=== PATIENT | male | born 1965 | race African-American/Black ===

== ENCOUNTER 2018-03-27 01:50 | Emergency (ER) | payer MEDICAID ==
[~2018-03-27] VITALS: Ht 188 cm; Wt 100.0 kg
[2018-03-27] MEDS ORDERED: SODIUM CHLORIDE 0.9% 1,000 ML IV ONE (02:21)
[2018-03-27 03:50] LABS: BASOPHILS % 0.8 % (0.0-2.0); EOSINOPHILS % 2.4 % (0.0-5.0); HEMATOCRIT. 46.1 % (42.0-52.0); HEMOGLOBIN. 15.8 g/dL (14.0-18.0); LYMPHOCYTES % 33.8 % (20.0-50.0); MEAN CORPUSCULAR HEMOGLOBIN 31.5 pg (28.0-32.0); MEAN CORPUSCULAR VOLUME 92.2 fL (80.0-94.0); MEAN PLATELET VOLUME 7.7 fl (7.4-10.4); PLATELET 248 x1000/uL (130-400); RED CELL DISTRIBUTION WIDTH 15.7 % (11.6-14.6)
[2018-03-27 03:55] LABS: CHLORIDE 102 mEq/L (98-107)
[2018-03-27 04:02] LABS: D-DIMER 3.58 mg/L FEU (<0.50); PARTIAL THROMBOPLASTIN TIME 27.9 sec (23.4-31.0); PROTHROMBIN TIME 9.8 sec (9.1-11.1)
[2018-03-27 04:17] LABS: CLARITY URINE CLEAR (CLEAR); COLOR URINE YELLOW (YELLOW); KETONES URINE NEGATIVE (NEGATIVE); LEUKOCYTE ESTERASE URINE NEGATIVE (NEGATIVE); NITRITE URINE NEGATIVE (NEGATIVE); OCCULT BLOOD URINE 1+ (NEGATIVE); PROTEIN URINE NEGATIVE (NEGATIVE); SPECIFIC GRAVITY URINE 1.009 (1.005-1.030); UROBILINOGEN URINE 0.2 E.U./dL (0.2-1.0)
[2018-03-27 04:23] LABS: ETHANOL BLOOD 350 mg/dL
[2018-03-27 04:38] LABS: *AMPHETAMINES SCREEN URINE NEGATIVE (NEGATIVE); *BARBITURATES SCREEN URINE NEGATIVE (NEGATIVE); *BENZODIAZEPINES SCREEN URINE NEGATIVE (NEGATIVE); *COCAINE SCREEN URINE NEGATIVE (NEGATIVE); METHADONE URINE SCREEN NEGATIVE (NEGATIVE); OPIATES URINE SCREEN NEGATIVE (NEGATIVE)
[2018-03-27 04:39] LABS: CANNABINOID URINE SCREEN NEGATIVE (NEGATIVE); PHENCYCLIDINE URINE SCREEN NEGATIVE (NEGATIVE)
[2018-03-27] MEDS ORDERED: IOHEXOL-350 100 ML BOTTLE ONE (06:19)
[2018-03-27 11:53] VITALS: BP 139/82
== END 2018-03-27 11:58 | disposition home or self-care (01) ==
LOC: ER 01:50 → EDBD 01:50 → ER 11:58
DX: F10.229 Alcohol dependence with intoxication, unspecified (principal); Y90.8 Blood alcohol level of 240 mg/100 ml or more; R79.1 Abnormal coagulation profile; Z71.41 Alcohol abuse counseling and surveillance of alcoholic
CPT/HCPCS: 36415; 70450; 71045; 71275; 80053; 80305; 81003; 83605; 84443; 84484; 85025; 85379; 85610; 85730; 93005; 96360; 96361; 99285; G0482; J7030; Q9967; Z7610

== ENCOUNTER 2018-06-28 18:58 | Emergency (ER) | payer MEDICAID ==
[~2018-06-28] VITALS: Ht 177.8 cm; Wt 80.0 kg
[2018-06-28 21:31] VITALS: BP 123/64
[2018-06-28] MEDS ORDERED: TETANUS, DIPHTHERIA, PERTUSSIS VAC/PF 0.5ML (>7YR OLD) IM ONE (22:30)
[2018-06-28] MEDS ORDERED: CEFAZOLIN 1000MG PREMIX 50 ML IV ONE (22:30)
== END 2018-06-28 23:12 | disposition left against medical advice (07) ==
LOC: ER 19:21
DX: S00.03XA Contusion of scalp, initial encounter (principal); F10.129 Alcohol abuse with intoxication, unspecified; Y90.9 Presence of alcohol in blood, level not specified; W01.0XXA Fall on same level from slipping, tripping and stumbling without subsequent striking against object, initial encounter; Y93.89 Activity, other specified; Y92.89 Other specified places as the place of occurrence of the external cause
CPT/HCPCS: 12001; 71045; 93005; 99284

== ENCOUNTER 2021-05-23 05:12 | Inpatient (IN) | payer MEDICAID, OTHER ==
[~2021-05-23] VITALS: Ht 190.5 cm; Wt 89.9 kg
[~2021-05-23 05:12] MED LIST: AMLO5TAB4 MT; ASPI-986 MT
[2021-05-23] MEDS ORDERED: ACETAMINOPHEN 325MG TABLET PO STA (06:01)
[2021-05-23 06:32] LABS: BASOPHILS % 0.6 % (0.0-2.0); CHLORIDE 102 mEq/L (98-107); EOSINOPHILS % 1.9 % (0.0-5.0); HEMATOCRIT. 41.1 % (42.0-52.0); HEMOGLOBIN. 13.8 g/dL (14.0-18.0); LYMPHOCYTES % 36.1 % (20.0-50.0); MEAN CORPUSCULAR HEMOGLOBIN 31.3 pg (28.0-32.0); MEAN PLATELET VOLUME 7.3 fl (7.4-10.4); MONOCYTES % 8.3 % (2.0-8.0); NEUTROPHILS % 53.1 % (40.0-76.0); PLATELET 285 x1000/uL (130-400); RED BLOOD CELL COUNT 4.42 mill/uL (4.7-6.1); RED CELL DISTRIBUTION WIDTH 16.8 % (11.6-14.6)
[2021-05-23 06:36] LABS: ETHANOL BLOOD < 10 mg/dL
[2021-05-23 06:45] LABS: PROTHROMBIN TIME 10.5 sec (9.6-11.0)
[2021-05-23] MEDS ORDERED: GADOTERATE MEGLUMINE 5 MMOL/10 ML VIAL IV ONE (08:21)
[2021-05-23] MEDS ORDERED: ONDANSETRON HCL 4MG/2ML INJ IV PRN (10:15)
[2021-05-23] MEDS ORDERED: DIPHENHYDRAMINE 50MG/ML VIAL IV PRN (10:15)
[2021-05-23] MEDS ORDERED: ACETAMINOPHEN 325MG TABLET PO PRN (10:15)
[2021-05-23] MEDS ORDERED: IPRATROPIUM/ALBUTEROL 0.5-3(2.5)MG/3ML NEB HHN SCH (12:00)
[2021-05-23] MEDS: DEXAMETHASONE 4MG/ML 1ML VIAL IV SCH ×2 (13:45→18:52)
[2021-05-23] MEDS ORDERED: NALOXONE HCL 0.4MG/ML VIAL IV PRN (16:00)
[2021-05-23] MEDS: MORPHINE SULFATE 2 MG/ML CPJ (NOT FOR IM USE) IV PRN (17:38)
[2021-05-23 20:00] VITALS: BP 138/95
[2021-05-24] VITALS (39 sets, daily range): BP systolic 101–156; BP diastolic 55–98
[2021-05-24] MEDS: DEXAMETHASONE 4MG/ML 1ML VIAL IV SCH ×5 (00:04→23:57)
[2021-05-24] MEDS: MORPHINE SULFATE 2 MG/ML CPJ (NOT FOR IM USE) IV PRN ×2 (03:42→08:44)
[2021-05-24] MEDS ORDERED: *PATIENT'S OWN MEDICATION STORAGE XX SCH (04:15)
[2021-05-24] MEDS ORDERED: GENTAMICIN SULF 40MG/ML 2ML VIAL ONE (07:16)
[2021-05-24] MEDS ORDERED: BACITRACIN 15GM TUBE TOP ONE (07:16)
[2021-05-24] MEDS ORDERED: LIDOCAINE HCL/EPINEPHRINE 1%-EPI 1:100,000 20 ML VIAL ONE (07:16)
[2021-05-24] MEDS ORDERED: THROMBIN (BOVINE) 5000 UNITS/VIAL TOP ONE (07:17)
[2021-05-24 07:22] LABS: BASOPHILS % 0.2 % (0.0-2.0); HEMATOCRIT. 39.1 % (42.0-52.0); HEMOGLOBIN. 13.3 g/dL (14.0-18.0); LYMPHOCYTES % 14.4 % (20.0-50.0); MEAN CORPUSCULAR HEMOGLOBIN 31.4 pg (28.0-32.0); MEAN CORPUSCULAR VOLUME 92.8 fL (80.0-94.0); MONOCYTES % 3.3 % (2.0-8.0); NEUTROPHILS % 82.1 % (40.0-76.0); PLATELET 312 x1000/uL (130-400); RED BLOOD CELL COUNT 4.22 mill/uL (4.7-6.1); RED CELL DISTRIBUTION WIDTH 16.4 % (11.6-14.6)
[2021-05-24 08:30] LABS: CHLORIDE 101 mEq/L (98-107)
[2021-05-24 08:39] LABS: LDL CHOLESTEROL 87 mg/dL (5-100)
[2021-05-24 08:41] LABS: HDL CHOLESTEROL 62 mg/dL (40-59)
[2021-05-24] MEDS ORDERED: IPRATROPIUM/ALBUTEROL 0.5-3(2.5)MG/3ML NEB HHN PRN (10:00)
[2021-05-24] MEDS ORDERED: ROCURONIUM BROMIDE 10MG/ML VIAL 5ML IV ONE ×2 (12:23→13:00)
[2021-05-24] MEDS ORDERED: PHENYLEPHRINE HCL 10 MG/ML 1ML (IV VIAL) IV ONE (12:23)
[2021-05-24] MEDS ORDERED: MIDAZOLAM HCL 2 MG/2 ML VIAL ONE (12:23)
[2021-05-24] MEDS ORDERED: GLYCOPYRROLATE 0.2 MG/ML 2ML VIAL ONE (12:23)
[2021-05-24] MEDS ORDERED: NEOSTIGMINE METHYLSULFATE 1MG/ML 10 ML VIAL ONE (12:23)
[2021-05-24] MEDS ORDERED: FENTANYL CITRATE/PF 50MCG/ML 2ML VIAL ONE ×3 (12:23→13:47)
[2021-05-24] MEDS ORDERED: PROPOFOL 200MG/20ML VIAL IV ONE ×2 (12:23→13:46)
[2021-05-24] MEDS ORDERED: DEXAMETHASONE 4MG/ML 1ML VIAL ONE (12:24)
[2021-05-24] MEDS ORDERED: SODIUM CHLORIDE 0.9% 10ML VIAL ONE (12:24)
[2021-05-24] MEDS ORDERED: CEFAZOLIN SODIUM 1000MG/VIAL ONE (12:24)
[2021-05-24] MEDS ORDERED: SUCCINYLCHOLINE CHLORIDE 200MG/10ML IV ONE (12:24)
[2021-05-24] MEDS ORDERED: ONDANSETRON HCL 4MG/2ML INJ ONE (12:24)
[2021-05-24] MEDS ORDERED: METOCLOPRAMIDE HCL 10MG/2ML VIAL ONE (12:24)
[2021-05-24] MEDS ORDERED: MORPHINE SULFATE 4 MG/ML CPJ (NOT FOR IM USE) IV PRN (15:00)
[2021-05-24] MEDS: DEXT 5%/LACTATED RINGERS 1,000 ML IV SCH (15:36)
[2021-05-24] MEDS ORDERED: NALOXONE INJ IV PRN (15:45)
[2021-05-24] MEDS ORDERED: DIPHENHYDRAMINE INJ IV PRN (15:45)
[2021-05-24] MEDS ORDERED: ONDANSETRON INJ IV PRN (15:45)
[2021-05-24] MEDS ORDERED: HYDROMORPHONE PCA 10MG/50ML IV PRN (15:45)
[2021-05-24] MEDS: NICARDIPINE 100 MG in SODIUM CHLORIDE 0.9% 60 ML IV PRN ×2 (16:09→20:53)
[2021-05-24] MEDS: HYDROMORPHONE HCL/PF 2MG/ML CPJ IV PRN ×3 (17:02→23:57)
[2021-05-25] VITALS (86 sets, daily range): BP systolic 60–171; BP diastolic 30–121
[2021-05-25] MEDS: DEXT 5%/LACTATED RINGERS 1,000 ML IV SCH ×3 (01:25→22:31)
[2021-05-25] MEDS: MORPHINE SULFATE 2 MG/ML CPJ (NOT FOR IM USE) IV PRN ×2 (02:30→09:04)
[2021-05-25] MEDS: HYDROMORPHONE HCL/PF 2MG/ML CPJ IV PRN ×3 (03:18→11:13)
[2021-05-25] MEDS: NICARDIPINE 100 MG in SODIUM CHLORIDE 0.9% 60 ML IV PRN ×2 (04:59→14:21)
[2021-05-25 05:36] LABS: HEMATOCRIT. 37.9 % (42.0-52.0); HEMOGLOBIN. 13.1 g/dL (14.0-18.0); MEAN CORPUSCULAR HEMOGLOBIN 31.5 pg (28.0-32.0); MEAN CORPUSCULAR VOLUME 91.4 fL (80.0-94.0); MEAN PLATELET VOLUME 7.4 fl (7.4-10.4); PLATELET 369 x1000/uL (130-400); RED BLOOD CELL COUNT 4.15 mill/uL (4.7-6.1); RED CELL DISTRIBUTION WIDTH 16.5 % (11.6-14.6)
[2021-05-25 05:47] LABS: CHLORIDE 104 mEq/L (98-107)
[2021-05-25] MEDS: DEXAMETHASONE 4MG/ML 1ML VIAL IV SCH ×3 (05:57→18:52)
[2021-05-25 11:09] LABS: PLATELET ESTIMATE NORMAL
[2021-05-25] MEDS ORDERED: GUAIFENESIN 600MG ER TABLET PO PRN (11:45)
[2021-05-25] MEDS: AMLODIPINE 5MG TABLET PO SCH (17:09)
[2021-05-25] MEDS: CLONIDINE 0.1MG TABLET PO PRN ×2 (17:10→23:39)
[2021-05-25] MEDS: IPRATROPIUM/ALBUTEROL 0.5-3(2.5)MG/3ML NEB HHN SCH (20:11)
[2021-05-26] VITALS (50 sets, daily range): BP systolic 116–167; BP diastolic 68–146
[2021-05-26] MEDS: NICARDIPINE 100 MG in SODIUM CHLORIDE 0.9% 60 ML IV PRN (00:01)
[2021-05-26] MEDS: IPRATROPIUM/ALBUTEROL 0.5-3(2.5)MG/3ML NEB HHN SCH ×3 (00:13→14:28)
[2021-05-26 05:25] LABS: HEMATOCRIT. 38.2 % (42.0-52.0); HEMOGLOBIN. 12.9 g/dL (14.0-18.0); MEAN CORPUSCULAR HEMOGLOBIN 31.4 pg (28.0-32.0); MEAN CORPUSCULAR VOLUME 92.8 fL (80.0-94.0); MEAN PLATELET VOLUME 7.6 fl (7.4-10.4); PLATELET 373 x1000/uL (130-400); RED BLOOD CELL COUNT 4.12 mill/uL (4.7-6.1); RED CELL DISTRIBUTION WIDTH 16.5 % (11.6-14.6)
[2021-05-26 05:35] LABS: CHLORIDE 102 mEq/L (98-107)
[2021-05-26] MEDS: CLONIDINE 0.1MG TABLET PO PRN (05:52)
[2021-05-26] MEDS: DEXT 5%/LACTATED RINGERS 1,000 ML IV SCH ×2 (08:31→17:54)
[2021-05-26] MEDS: AMLODIPINE 5MG TABLET PO SCH (08:31)
[2021-05-26] MEDS: HYDROCODONE/ACETAMINOPHEN 10/325MG TABLET PO PRN (10:21)
[2021-05-26 10:32] LABS: PLATELET ESTIMATE NORMAL
[2021-05-26] MEDS: MORPHINE SULFATE 2 MG/ML CPJ (NOT FOR IM USE) IV PRN ×3 (13:11→22:04)
[2021-05-26] MEDS ORDERED: AMLODIPINE 5MG TABLET PO SCH (13:30)
[2021-05-26] MEDS: HYDROCODONE/ACETAMINOPHEN 5/325MG TABLET PO PRN (15:23)
[2021-05-27] VITALS: BP 148/88
[2021-05-27] MEDS: DEXT 5%/LACTATED RINGERS 1,000 ML IV SCH ×3 (03:53→23:00)
[2021-05-27 04:00] VITALS: BP 155/77
[2021-05-27] MEDS: MORPHINE SULFATE 2 MG/ML CPJ (NOT FOR IM USE) IV PRN ×3 (04:02→20:49)
[2021-05-27] MEDS: CLONIDINE 0.1MG TABLET PO PRN (04:03)
[2021-05-27] MEDS ORDERED: HYDRALAZINE 5 MG in SODIUM CHLORIDE 0.9% 49.5 ML IV SCH (06:00)
[2021-05-27 06:18] LABS: HEMATOCRIT. 35.3 % (42.0-52.0); LYMPHOCYTES % 11.6 % (20.0-50.0); MEAN CORPUSCULAR HEMOGLOBIN 31.4 pg (28.0-32.0); MEAN CORPUSCULAR VOLUME 92.5 fL (80.0-94.0); MEAN PLATELET VOLUME 7.7 fl (7.4-10.4); NEUTROPHILS % 80.4 % (40.0-76.0); PLATELET 360 x1000/uL (130-400); RED BLOOD CELL COUNT 3.82 mill/uL (4.7-6.1); RED CELL DISTRIBUTION WIDTH 16.7 % (11.6-14.6)
[2021-05-27 06:46] LABS: CHLORIDE 101 mEq/L (98-107)
[2021-05-27 08:00] VITALS: BP 146/92
[2021-05-27] MEDS: IPRATROPIUM/ALBUTEROL 0.5-3(2.5)MG/3ML NEB HHN SCH ×3 (08:18→21:28)
[2021-05-27] MEDS: AMLODIPINE 10MG TABLET PO SCH (08:20)
[2021-05-27] MEDS: HYDROCODONE/ACETAMINOPHEN 10/325MG TABLET PO PRN ×2 (08:20→15:25)
[2021-05-27] MEDS: HYDRALAZINE HCL 50MG TABLET PO SCH ×2 (11:47→20:48)
[2021-05-27 12:00] VITALS: BP 139/88
[2021-05-27 20:00] VITALS: BP 132/82
[2021-05-28] VITALS: BP 136/80
[2021-05-28] MEDS: MORPHINE SULFATE 2 MG/ML CPJ (NOT FOR IM USE) IV PRN (00:55)
[2021-05-28] MEDS: IPRATROPIUM/ALBUTEROL 0.5-3(2.5)MG/3ML NEB HHN SCH ×4 (02:22→21:36)
[2021-05-28 04:00] VITALS: BP 146/88
[2021-05-28] MEDS: HYDROCODONE/ACETAMINOPHEN 10/325MG TABLET PO PRN ×3 (04:15→17:16)
[2021-05-28 08:12] VITALS: BP 137/74
[2021-05-28] MEDS: AMLODIPINE 10MG TABLET PO SCH (09:28)
[2021-05-28] MEDS: DEXT 5%/LACTATED RINGERS 1,000 ML IV SCH ×2 (09:29→22:25)
[2021-05-28 12:09] VITALS: BP 138/76
[2021-05-28] MEDS: HYDRALAZINE HCL 50MG TABLET PO SCH ×2 (13:25→22:22)
[2021-05-28 16:00] VITALS: BP 129/80
[2021-05-28 20:00] VITALS: BP 141/80
[2021-05-28] MEDS: HYDROCODONE/ACETAMINOPHEN 5/325MG TABLET PO PRN (22:25)
[2021-05-29] VITALS: BP 143/77
[2021-05-29 04:00] VITALS: BP 139/89
[2021-05-29] MEDS: DEXT 5%/LACTATED RINGERS 1,000 ML IV SCH ×2 (06:28→18:56)
[2021-05-29] MEDS: HYDRALAZINE HCL 50MG TABLET PO SCH ×3 (06:29→21:48)
[2021-05-29] MEDS: IPRATROPIUM/ALBUTEROL 0.5-3(2.5)MG/3ML NEB HHN SCH ×4 (07:54→21:38)
[2021-05-29 08:00] VITALS: BP 107/80
[2021-05-29] MEDS: AMLODIPINE 10MG TABLET PO SCH (09:00)
[2021-05-29] MEDS: HYDROCODONE/ACETAMINOPHEN 10/325MG TABLET PO PRN ×2 (09:28→18:51)
[2021-05-29 16:00] VITALS: BP 130/77
[2021-05-29 20:00] VITALS: BP 124/74
[2021-05-29] MEDS: GABAPENTIN 100MG CAPSULE PO SCH (21:48)
[2021-05-29] MEDS: MORPHINE SULFATE 2 MG/ML CPJ (NOT FOR IM USE) IV PRN (21:49)
[2021-05-30] VITALS: BP 130/72
[2021-05-30] MEDS: DEXT 5%/LACTATED RINGERS 1,000 ML IV SCH ×3 (01:12→20:44)
[2021-05-30] MEDS: HYDROCODONE/ACETAMINOPHEN 10/325MG TABLET PO PRN ×3 (01:12→20:46)
[2021-05-30] MEDS: IPRATROPIUM/ALBUTEROL 0.5-3(2.5)MG/3ML NEB HHN SCH ×2 (02:40→21:10)
[2021-05-30 04:00] VITALS: BP 123/74
[2021-05-30] MEDS: MORPHINE SULFATE 2 MG/ML CPJ (NOT FOR IM USE) IV PRN ×2 (05:24→12:57)
[2021-05-30] MEDS: HYDRALAZINE HCL 50MG TABLET PO SCH ×3 (05:24→21:00)
[2021-05-30] MEDS: GABAPENTIN 100MG CAPSULE PO SCH ×3 (05:24→21:00)
[2021-05-30 06:24] LABS: CHLORIDE 98 mEq/L (98-107)
[2021-05-30 06:34] LABS: BASOPHILS % 0.1 % (0.0-2.0); EOSINOPHILS % 1.5 % (0.0-5.0); HEMATOCRIT. 37.1 % (42.0-52.0); HEMOGLOBIN. 12.7 g/dL (14.0-18.0); LYMPHOCYTES % 18.9 % (20.0-50.0); MEAN CORPUSCULAR HEMOGLOBIN 31.6 pg (28.0-32.0); MEAN CORPUSCULAR VOLUME 92.1 fL (80.0-94.0); MEAN PLATELET VOLUME 7.2 fl (7.4-10.4); MONOCYTES % 11.8 % (2.0-8.0); NEUTROPHILS % 67.7 % (40.0-76.0); PLATELET 380 x1000/uL (130-400); RED BLOOD CELL COUNT 4.03 mill/uL (4.7-6.1); RED CELL DISTRIBUTION WIDTH 16.4 % (11.6-14.6)
[2021-05-30 08:00] VITALS: BP 125/74
[2021-05-30] MEDS: AMLODIPINE 10MG TABLET PO SCH (09:21)
[2021-05-30 16:00] VITALS: BP 121/75
[2021-05-30 20:00] VITALS: BP 121/88
[2021-05-31] VITALS: BP 115/67
[2021-05-31] MEDS: MORPHINE SULFATE 2 MG/ML CPJ (NOT FOR IM USE) IV PRN ×2 (01:04→09:26)
[2021-05-31 04:00] VITALS: BP 131/74
[2021-05-31] MEDS: HYDROCODONE/ACETAMINOPHEN 10/325MG TABLET PO PRN ×3 (05:16→22:12)
[2021-05-31] MEDS: GABAPENTIN 100MG CAPSULE PO SCH ×3 (05:59→22:13)
[2021-05-31] MEDS: HYDRALAZINE HCL 50MG TABLET PO SCH ×3 (06:00→22:30)
[2021-05-31] MEDS: DEXT 5%/LACTATED RINGERS 1,000 ML IV SCH ×2 (06:00→17:30)
[2021-05-31 07:55] LABS: BASOPHILS % 0.2 % (0.0-2.0); EOSINOPHILS % 1.8 % (0.0-5.0); HEMATOCRIT. 37.8 % (42.0-52.0); HEMOGLOBIN. 12.9 g/dL (14.0-18.0); LYMPHOCYTES % 10.5 % (20.0-50.0); MEAN CORPUSCULAR HEMOGLOBIN 31.4 pg (28.0-32.0); MEAN CORPUSCULAR VOLUME 92.1 fL (80.0-94.0); MEAN PLATELET VOLUME 7.3 fl (7.4-10.4); MONOCYTES % 13.6 % (2.0-8.0); NEUTROPHILS % 73.9 % (40.0-76.0); PLATELET 377 x1000/uL (130-400); RED CELL DISTRIBUTION WIDTH 16.3 % (11.6-14.6)
[2021-05-31 08:00] VITALS: BP 114/76
[2021-05-31 08:06] LABS: CHLORIDE 98 mEq/L (98-107)
[2021-05-31] MEDS: IPRATROPIUM/ALBUTEROL 0.5-3(2.5)MG/3ML NEB HHN SCH ×3 (08:20→21:00)
[2021-05-31] MEDS: AMLODIPINE 10MG TABLET PO SCH (09:00)
[2021-05-31 12:00] VITALS: BP 132/78
[2021-05-31] MEDS ORDERED: NALOXONE HCL 0.4MG/ML VIAL IV PRN (14:15)
[2021-05-31 16:00] VITALS: BP 147/83
[2021-05-31] MEDS ORDERED: MORPHINE SULFATE 2 MG/ML CPJ (NOT FOR IM USE) IV PRN (19:00)
[2021-05-31 20:00] VITALS: BP 132/92
[2021-06-01] VITALS (27 sets, daily range): BP systolic 100–172; BP diastolic 63–119
[2021-06-01] MEDS: IPRATROPIUM/ALBUTEROL 0.5-3(2.5)MG/3ML NEB HHN SCH ×4 (01:50→20:03)
[2021-06-01] MEDS: DEXT 5%/LACTATED RINGERS 1,000 ML IV SCH ×3 (03:00→22:59)
[2021-06-01] MEDS: HYDRALAZINE HCL 50MG TABLET PO SCH ×3 (06:05→22:00)
[2021-06-01] MEDS: GABAPENTIN 100MG CAPSULE PO SCH ×3 (06:05→22:00)
[2021-06-01] MEDS: AMLODIPINE 10MG TABLET PO SCH (09:00)
[2021-06-01] MEDS ORDERED: LIDOCAINE HCL/EPINEPHRINE 1%-EPI 1:100,000 20 ML VIAL ONE (13:19)
[2021-06-01] MEDS ORDERED: GENTAMICIN SULF 40MG/ML 2ML VIAL ONE (13:20)
[2021-06-01] MEDS ORDERED: THROMBIN (BOVINE) 5000 UNITS/VIAL TOP ONE (13:20)
[2021-06-01] MEDS ORDERED: NEOSTIGMINE METHYLSULFATE 1MG/ML 10 ML VIAL ONE (13:29)
[2021-06-01] MEDS ORDERED: PHENYLEPHRINE HCL 10 MG/ML 1ML (IV VIAL) IV ONE (13:29)
[2021-06-01] MEDS ORDERED: MIDAZOLAM HCL 2 MG/2 ML VIAL ONE (13:29)
[2021-06-01] MEDS ORDERED: FENTANYL CITRATE/PF 50MCG/ML 2ML VIAL ONE ×2 (13:29→14:02)
[2021-06-01] MEDS ORDERED: PROPOFOL 200MG/20ML VIAL IV ONE (13:29)
[2021-06-01] MEDS ORDERED: ROCURONIUM BROMIDE 10MG/ML VIAL 5ML IV ONE ×2 (13:29→14:05)
[2021-06-01] MEDS ORDERED: GLYCOPYRROLATE 0.2 MG/ML 2ML VIAL ONE (13:29)
[2021-06-01] MEDS ORDERED: METOCLOPRAMIDE HCL 10MG/2ML VIAL ONE (13:30)
[2021-06-01] MEDS ORDERED: SODIUM CHLORIDE 0.9% 10ML VIAL ONE (13:30)
[2021-06-01] MEDS ORDERED: ONDANSETRON HCL 4MG/2ML INJ ONE (13:30)
[2021-06-01] MEDS ORDERED: SUCCINYLCHOLINE CHLORIDE 200MG/10ML IV ONE (13:30)
[2021-06-01] MEDS ORDERED: CEFAZOLIN SODIUM 1000MG/VIAL IV SCH (14:00)
[2021-06-01] MEDS ORDERED: NICARDIPINE 100 MG in SODIUM CHLORIDE 0.9% 100 ML IV PRN (14:30)
[2021-06-01] MEDS: MORPHINE SULFATE 2 MG/ML CPJ (NOT FOR IM USE) IV PRN (15:23)
[2021-06-01 15:41] LABS: BG CARBOXYHEMOGLOBIN 0.6 % (0.5-1.5); BG DEOXYHEMOGLOBIN 1.1 % (0.0-5.0); BG FRACTION INSPIRED OXYGEN 60; BG METHEMOGLOBIN 0.5 % (0.0-1.5); BG OXYGEN SATURATION 98.9 % (92.0-98.5); BG OXYHEMOGLOBIN 97.8 % (94.0-97.0); BG PCO2 42.2 mmHg (35.0-45.0); BG PH 7.391 (7.350-7.450); BG SAMPLE SITE RIGHT RADIAL; BG TOTAL HEMOGLOBIN 14.4 g/dL (12.0-18.0); BG TOTAL RESPIRATORY RATE 24 b/min; BG VENT MODE VENT - AC
[2021-06-01] MEDS: PROPOFOL 10MG/ML 100ML 100 ML IV PRN ×2 (15:57→23:20)
[2021-06-01] MEDS: DEXAMETHASONE 4MG/ML 1ML VIAL IV SCH (17:31)
[2021-06-01] MEDS: CEFAZOLIN 1000MG PREMIX 50 ML IV SCH ×2 (17:31→22:58)
[2021-06-02] VITALS (81 sets, daily range): BP systolic 83–137; BP diastolic 52–89
[2021-06-02] MEDS: DEXAMETHASONE 4MG/ML 1ML VIAL IV SCH ×4 (00:51→18:14)
[2021-06-02] MEDS: IPRATROPIUM/ALBUTEROL 0.5-3(2.5)MG/3ML NEB HHN SCH ×4 (01:49→20:38)
[2021-06-02] MEDS: MORPHINE SULFATE 2 MG/ML CPJ (NOT FOR IM USE) IV PRN ×6 (03:00→22:36)
[2021-06-02] MEDS: PROPOFOL 10MG/ML 100ML 100 ML IV PRN ×2 (04:11→12:13)
[2021-06-02] MEDS: HYDRALAZINE HCL 50MG TABLET PO SCH ×3 (06:00→22:00)
[2021-06-02] MEDS: GABAPENTIN 100MG CAPSULE PO SCH ×3 (06:00→22:00)
[2021-06-02] MEDS: CEFAZOLIN 1000MG PREMIX 50 ML IV SCH ×3 (06:03→22:33)
[2021-06-02 08:33] LABS: BG BASE EXCESS 2.8 mmol/L (-2.0-2.0); BG CARBOXYHEMOGLOBIN 0.2 % (0.5-1.5); BG DEOXYHEMOGLOBIN 2.8 % (0.0-5.0); BG HCO3 ACT 26.9 mmol/L (22.0-26.0); BG METHEMOGLOBIN 0.2 % (0.0-1.5); BG OXYGEN SATURATION 97.2 % (92.0-98.5); BG OXYHEMOGLOBIN 96.8 % (94.0-97.0); BG PCO2 39.5 mmHg (35.0-45.0); BG PH 7.451 (7.350-7.450); BG PO2 92.4 mmHg (75.0-100.0); BG SAMPLE SITE RIGHT RADIAL; BG TOTAL HEMOGLOBIN 12.7 g/dL (12.0-18.0); BG VENT MODE VENT - AC
[2021-06-02] MEDS: AMLODIPINE 10MG TABLET PO SCH (09:00)
[2021-06-02] MEDS: DEXT 5%/LACTATED RINGERS 1,000 ML IV SCH ×2 (11:13→20:28)
[2021-06-02] MEDS ORDERED: PROPOFOL 10MG/ML 100ML 100 ML IV PRN (16:45)
[2021-06-03] VITALS (65 sets, daily range): BP systolic 104–146; BP diastolic 61–92
[2021-06-03] MEDS: IPRATROPIUM/ALBUTEROL 0.5-3(2.5)MG/3ML NEB HHN SCH ×4 (01:20→21:06)
[2021-06-03] MEDS: MORPHINE SULFATE 2 MG/ML CPJ (NOT FOR IM USE) IV PRN ×3 (02:47→15:08)
[2021-06-03 05:46] LABS: BASOPHILS % 0.2 % (0.0-2.0); HEMOGLOBIN. 11.3 g/dL (14.0-18.0); LYMPHOCYTES % 12.4 % (20.0-50.0); MEAN CORPUSCULAR HEMOGLOBIN 31.5 pg (28.0-32.0); MEAN CORPUSCULAR VOLUME 91.7 fL (80.0-94.0); MEAN PLATELET VOLUME 7.6 fl (7.4-10.4); MONOCYTES % 9.9 % (2.0-8.0); NEUTROPHILS % 77.5 % (40.0-76.0); PLATELET 356 x1000/uL (130-400); RED CELL DISTRIBUTION WIDTH 15.6 % (11.6-14.6)
[2021-06-03] MEDS: DEXT 5%/LACTATED RINGERS 1,000 ML IV SCH ×3 (05:54→12:45)
[2021-06-03] MEDS: HYDRALAZINE HCL 50MG TABLET PO SCH ×3 (05:54→22:11)
[2021-06-03] MEDS: CEFAZOLIN 1000MG PREMIX 50 ML IV SCH ×3 (05:54→22:11)
[2021-06-03] MEDS: GABAPENTIN 100MG CAPSULE PO SCH ×3 (05:55→22:11)
[2021-06-03 06:03] LABS: CHLORIDE 101 mEq/L (98-107)
[2021-06-03] MEDS: AMLODIPINE 10MG TABLET PO SCH (08:03)
[2021-06-03 10:13] LABS: BG BASE EXCESS 4.7 mmol/L (-2.0-2.0); BG CARBOXYHEMOGLOBIN 0.3 % (0.5-1.5); BG DEOXYHEMOGLOBIN 1.9 % (0.0-5.0); BG FRACTION INSPIRED OXYGEN 30; BG HCO3 ACT 28.4 mmol/L (22.0-26.0); BG METHEMOGLOBIN 0.2 % (0.0-1.5); BG OXYGEN SATURATION 98.1 % (92.0-98.5); BG OXYHEMOGLOBIN 97.6 % (94.0-97.0); BG PCO2 38.8 mmHg (35.0-45.0); BG PH 7.482 (7.350-7.450); BG PO2 116.7 mmHg (75.0-100.0); BG SAMPLE SITE RIGHT RADIAL; BG TOTAL HEMOGLOBIN 11.9 g/dL (12.0-18.0); BG VENT MODE VENT - AC
[2021-06-04] VITALS (21 sets, daily range): BP systolic 97–123; BP diastolic 60–78
[2021-06-04] MEDS: IPRATROPIUM/ALBUTEROL 0.5-3(2.5)MG/3ML NEB HHN SCH ×4 (03:30→21:03)
[2021-06-04] MEDS: CEFAZOLIN 1000MG PREMIX 50 ML IV SCH ×3 (05:22→20:53)
[2021-06-04] MEDS: GABAPENTIN 100MG CAPSULE PO SCH ×3 (05:23→20:54)
[2021-06-04] MEDS: HYDRALAZINE HCL 50MG TABLET PO SCH ×3 (05:23→20:52)
[2021-06-04] MEDS: AMLODIPINE 10MG TABLET PO SCH (08:08)
[2021-06-04] MEDS: HYDROCODONE/ACETAMINOPHEN 10/325MG TABLET PO PRN (14:51)
[2021-06-05] VITALS (9 sets, daily range): BP systolic 105–123; BP diastolic 65–77
[2021-06-05] MEDS: IPRATROPIUM/ALBUTEROL 0.5-3(2.5)MG/3ML NEB HHN SCH ×4 (02:07→20:11)
[2021-06-05] MEDS: CEFAZOLIN 1000MG PREMIX 50 ML IV SCH ×3 (06:27→23:39)
[2021-06-05] MEDS: HYDRALAZINE HCL 50MG TABLET PO SCH ×3 (06:28→22:12)
[2021-06-05] MEDS: GABAPENTIN 100MG CAPSULE PO SCH ×2 (06:28→15:33)
[2021-06-05] MEDS: AMLODIPINE 10MG TABLET PO SCH (08:44)
[2021-06-05] MEDS: MORPHINE SULFATE 2 MG/ML CPJ (NOT FOR IM USE) IV PRN ×2 (15:39→22:13)
[2021-06-05] MEDS ORDERED: NALOXONE HCL 0.4MG/ML VIAL IV PRN (19:30)
[2021-06-05] MEDS: GABAPENTIN 300MG CAPSULE PO SCH (22:11)
[2021-06-06] VITALS: BP 120/71
[2021-06-06] MEDS: IPRATROPIUM/ALBUTEROL 0.5-3(2.5)MG/3ML NEB HHN SCH ×3 (02:20→15:07)
[2021-06-06] MEDS: MORPHINE SULFATE 2 MG/ML CPJ (NOT FOR IM USE) IV PRN ×2 (03:05→09:26)
[2021-06-06 04:00] VITALS: BP 118/72
[2021-06-06] MEDS: CEFAZOLIN 1000MG PREMIX 50 ML IV SCH ×2 (05:43→16:36)
[2021-06-06] MEDS: HYDRALAZINE HCL 50MG TABLET PO SCH ×3 (05:44→21:47)
[2021-06-06] MEDS: GABAPENTIN 300MG CAPSULE PO SCH (05:44)
[2021-06-06 07:17] LABS: CHLORIDE 101 mEq/L (98-107)
[2021-06-06 07:19] LABS: BASOPHILS % 0.6 % (0.0-2.0); EOSINOPHILS % 2.9 % (0.0-5.0); HEMATOCRIT. 35.1 % (42.0-52.0); LYMPHOCYTES % 18.1 % (20.0-50.0); MEAN CORPUSCULAR HEMOGLOBIN 31.6 pg (28.0-32.0); MEAN PLATELET VOLUME 7.2 fl (7.4-10.4); MONOCYTES % 8.2 % (2.0-8.0); NEUTROPHILS % 70.2 % (40.0-76.0); PLATELET 325 x1000/uL (130-400); RED BLOOD CELL COUNT 3.81 mill/uL (4.7-6.1); RED CELL DISTRIBUTION WIDTH 15.8 % (11.6-14.6)
[2021-06-06 08:00] VITALS: BP 116/71
[2021-06-06] MEDS: AMLODIPINE 10MG TABLET PO SCH (09:25)
[2021-06-06 12:00] VITALS: BP 114/72
[2021-06-06] MEDS: GABAPENTIN 400MG CAPSULE PO SCH ×2 (14:02→21:48)
[2021-06-06 16:00] VITALS: BP 107/63
[2021-06-06 20:00] VITALS: BP 111/65
[2021-06-06] MEDS: HYDROCODONE/ACETAMINOPHEN 5/325MG TABLET PO PRN (23:27)
[2021-06-07] VITALS: BP 100/62
[2021-06-07 04:00] VITALS: BP 107/70
[2021-06-07] MEDS: HYDROCODONE/ACETAMINOPHEN 5/325MG TABLET PO PRN ×3 (04:42→13:39)
[2021-06-07] MEDS: HYDRALAZINE HCL 50MG TABLET PO SCH ×3 (06:00→21:54)
[2021-06-07] MEDS: GABAPENTIN 400MG CAPSULE PO SCH ×3 (06:50→21:54)
[2021-06-07 07:20] LABS: BASOPHILS % 0.6 % (0.0-2.0); EOSINOPHILS % 2.9 % (0.0-5.0); HEMATOCRIT. 35.5 % (42.0-52.0); HEMOGLOBIN. 12.2 g/dL (14.0-18.0); LYMPHOCYTES % 17.5 % (20.0-50.0); MEAN CORPUSCULAR HEMOGLOBIN 31.4 pg (28.0-32.0); MEAN CORPUSCULAR VOLUME 91.5 fL (80.0-94.0); MEAN PLATELET VOLUME 7.1 fl (7.4-10.4); MONOCYTES % 8.3 % (2.0-8.0); NEUTROPHILS % 70.7 % (40.0-76.0); PLATELET 315 x1000/uL (130-400); RED BLOOD CELL COUNT 3.88 mill/uL (4.7-6.1); RED CELL DISTRIBUTION WIDTH 15.9 % (11.6-14.6)
[2021-06-07 08:00] VITALS: BP 129/91
[2021-06-07] MEDS: IPRATROPIUM/ALBUTEROL 0.5-3(2.5)MG/3ML NEB HHN SCH ×3 (08:06→21:43)
[2021-06-07 08:19] LABS: CHLORIDE 101 mEq/L (98-107)
[2021-06-07] MEDS: AMLODIPINE 10MG TABLET PO SCH (09:34)
[2021-06-07 12:00] VITALS: BP 107/62
[2021-06-07 16:00] VITALS: BP 117/57
[2021-06-07] MEDS: MORPHINE SULFATE 2 MG/ML CPJ (NOT FOR IM USE) IV PRN ×2 (17:31→22:05)
[2021-06-07 20:00] VITALS: BP 118/70
[2021-06-08] VITALS: BP 106/60
[2021-06-08] MEDS: IPRATROPIUM/ALBUTEROL 0.5-3(2.5)MG/3ML NEB HHN SCH ×4 (03:00→20:24)
[2021-06-08 04:00] VITALS: BP 108/64
[2021-06-08] MEDS: MORPHINE SULFATE 2 MG/ML CPJ (NOT FOR IM USE) IV PRN ×4 (04:56→20:57)
[2021-06-08 05:45] LABS: EOSINOPHILS % 3.5 % (0.0-5.0); HEMATOCRIT. 35.1 % (42.0-52.0); HEMOGLOBIN. 11.9 g/dL (14.0-18.0); LYMPHOCYTES % 22.7 % (20.0-50.0); MEAN CORPUSCULAR HEMOGLOBIN 31.2 pg (28.0-32.0); MEAN CORPUSCULAR VOLUME 91.6 fL (80.0-94.0); MONOCYTES % 9.4 % (2.0-8.0); NEUTROPHILS % 63.4 % (40.0-76.0); PLATELET 316 x1000/uL (130-400); RED BLOOD CELL COUNT 3.83 mill/uL (4.7-6.1); RED CELL DISTRIBUTION WIDTH 15.7 % (11.6-14.6)
[2021-06-08 05:49] LABS: CHLORIDE 100 mEq/L (98-107)
[2021-06-08] MEDS: HYDRALAZINE HCL 50MG TABLET PO SCH ×3 (06:00→21:21)
[2021-06-08] MEDS: GABAPENTIN 400MG CAPSULE PO SCH ×3 (06:22→21:01)
[2021-06-08 08:00] VITALS: BP 131/61
[2021-06-08] MEDS: AMLODIPINE 10MG TABLET PO SCH (08:58)
[2021-06-08] MEDS: POLYETHYLENE GLYCOL 3350 (17GM) 1 DOSE PACK PO PRN (08:58)
[2021-06-08 12:22] VITALS: BP 109/71
[2021-06-08] MEDS: HYDROCODONE/ACETAMINOPHEN 5/325MG TABLET PO PRN (13:49)
[2021-06-08 16:00] VITALS: BP 105/70
[2021-06-08 20:00] VITALS: BP 101/61
[2021-06-09 00:26] VITALS: BP 103/60
[2021-06-09 04:31] VITALS: BP 116/70
[2021-06-09] MEDS: GABAPENTIN 400MG CAPSULE PO SCH ×3 (05:45→20:49)
[2021-06-09] MEDS: HYDRALAZINE HCL 50MG TABLET PO SCH ×3 (05:46→20:49)
[2021-06-09 08:00] VITALS: BP 120/72
[2021-06-09] MEDS: AMLODIPINE 10MG TABLET PO SCH (09:08)
[2021-06-09] MEDS: POLYETHYLENE GLYCOL 3350 (17GM) 1 DOSE PACK PO PRN (09:08)
[2021-06-09] MEDS: IPRATROPIUM/ALBUTEROL 0.5-3(2.5)MG/3ML NEB HHN SCH ×3 (09:33→19:58)
[2021-06-09] MEDS: HYDROCODONE/ACETAMINOPHEN 5/325MG TABLET PO PRN ×2 (10:24→18:59)
[2021-06-09 12:00] VITALS: BP 106/68
[2021-06-09 16:00] VITALS: BP 121/70
[2021-06-09 20:00] VITALS: BP 110/69
[2021-06-10 00:06] VITALS: BP 124/73
[2021-06-10] MEDS: HYDROCODONE/ACETAMINOPHEN 5/325MG TABLET PO PRN ×5 (01:17→23:42)
[2021-06-10] MEDS: IPRATROPIUM/ALBUTEROL 0.5-3(2.5)MG/3ML NEB HHN SCH ×3 (01:41→14:42)
[2021-06-10 04:00] VITALS: BP 121/71
[2021-06-10] MEDS: HYDRALAZINE HCL 50MG TABLET PO SCH ×3 (05:12→21:53)
[2021-06-10] MEDS: GABAPENTIN 400MG CAPSULE PO SCH ×3 (05:12→21:52)
[2021-06-10 08:00] VITALS: BP 109/69
[2021-06-10] MEDS: AMLODIPINE 10MG TABLET PO SCH (09:00)
[2021-06-10 12:00] VITALS: BP 105/78
[2021-06-10 20:00] VITALS: BP 115/76
[2021-06-10] MEDS: HEMORRHOIDAL SUPP PR SCH (21:52)
[2021-06-11] VITALS: BP 108/69
[2021-06-11 04:00] VITALS: BP 108/63
[2021-06-11] MEDS: GABAPENTIN 400MG CAPSULE PO SCH ×2 (05:44→13:39)
[2021-06-11] MEDS: HYDROCODONE/ACETAMINOPHEN 5/325MG TABLET PO PRN ×2 (05:45→13:45)
[2021-06-11] MEDS: HYDRALAZINE HCL 50MG TABLET PO SCH ×2 (05:46→13:39)
[2021-06-11] MEDS: IPRATROPIUM/ALBUTEROL 0.5-3(2.5)MG/3ML NEB HHN SCH ×2 (07:42→14:01)
[2021-06-11 08:00] VITALS: BP 118/74
[2021-06-11] MEDS: HEMORRHOIDAL SUPP PR SCH (09:42)
[2021-06-11] MEDS: AMLODIPINE 10MG TABLET PO SCH (09:42)
[2021-06-11] MEDS ORDERED: HYDR-4135 PO (11:55)
[2021-06-11] MEDS ORDERED: GABA-533 PO (11:55)
[2021-06-11] MEDS ORDERED: HYDR26CR2 TP (11:55)
[2021-06-11] MEDS ORDERED: AMLO10TA80 PO (11:55)
[2021-06-11 12:00] VITALS: BP 118/74
[2021-06-11 14:39] VITALS: BP 118/74
== END 2021-06-11 16:48 | DRG 321 ==
LOC: ER 05:21 → 6EST 09:35 → EDBEDREQ 09:41 → EDBEDREQSVC 09:41 → ENRESERV 10:39 → MICUSO 05-24 15:40 → 6EST 05-26 15:40 → MICUSO 06-01 14:28 → 5EST 06-04 12:00 → 6EST 06-05 17:03
PROVIDERS: ADMIT Internal Medicine; ATTEND Internal Medicine
PROC: 0RG2071 Fusion of 2 or more Cervical Vertebral Joints with Autologous Tissue Substitute, Posterior Approach, Posterior Column, Open Approach (ICD-10-PCS; principal; 2021-05-24)
PROC: 4A11X4G Monitoring of Peripheral Nervous Electrical Activity, Intraoperative, External Approach (ICD-10-PCS; 2021-05-24)
PROC: 01N10ZZ Release Cervical Nerve, Open Approach (ICD-10-PCS; 2021-05-24)
PROC: 00930ZZ Drainage of Intracranial Epidural Space, Open Approach (ICD-10-PCS; 2021-06-01)
DX: M48.02 Spinal stenosis, cervical region (principal); J95.821 Acute postprocedural respiratory failure; G82.50 Quadriplegia, unspecified; E44.1 Mild protein-calorie malnutrition; M50.01 Cervical disc disorder with myelopathy, high cervical region; M47.12 Other spondylosis with myelopathy, cervical region; G40.909 Epilepsy, unspecified, not intractable, without status epilepticus; K21.9 Gastro-esophageal reflux disease without esophagitis; M50.11 Cervical disc disorder with radiculopathy, high cervical region; L76.22 Postprocedural hemorrhage of skin and subcutaneous tissue following other procedure; F17.210 Nicotine dependence, cigarettes, uncomplicated; F20.9 Schizophrenia, unspecified; I10 Essential (primary) hypertension; K64.4 Residual hemorrhoidal skin tags; R26.89 Other abnormalities of gait and mobility; Z20.822 Contact with and (suspected) exposure to COVID-19; Z60.2 Problems related to living alone; Y92.238 Other place in hospital as the place of occurrence of the external cause; Y83.8 Other surgical procedures as the cause of abnormal reaction of the patient, or of later complication, without mention of misadventure at the time of the procedure; Z78.1 Physical restraint status; Z88.8 Allergy status to other drugs, medicaments and biological substances; Y92.89 Other specified places as the place of occurrence of the external cause; Z68.24 Body mass index [BMI] 24.0-24.9, adult; Z79.82 Long term (current) use of aspirin; Z79.899 Other long term (current) drug therapy
CPT/HCPCS: 36415; 36600; 71045; 72040; 72141; 72156; 76000; 80048; 80053; 80061; 80320; 82375; 82805; 84443; 84478; 84484; 85025; 86850; 86900; 87070; 87075; 87426; 88304; 88311; 92610; 93005; 93970; 94002; 94003; 94640; 95863; 95925; 95926; 95928; 95929; 95940; 97110; 97116; 97162; 97164; 97166; 97168; 97530; 97535; 99291; A9577; C1713; J0330; J0360; J0690; J1100; J1170; J1200; J1580; J2250; J2270; J2370; J2405; J2704; J2710; J2765; J3010; J3490; J7042; J7050; J7121; L0172; G0480